=== PATIENT | male | born 1980 | race Caucasian/White ===

== ENCOUNTER → 2017-03-12 | Outpatient (CLI) | payer OTHER ==
[~2017-03-12] MED LIST: ALBU1AER9 INH; ONDA4TAB7 SL
--- NOTE | 2017-03-13 06:52 | PAP/PSG TECHNICIAN REPORT ---
[facility] Stain Maker Polysomnogram Report Study name: None Report date: 03/13/2017 Study date: 03/12/2017 Referring Physician: DR. DELLA COTE Name: NEERU OLMSTEAD Interpreting Physician: Wero Guardado M.D. Date of : 1980 Stain Maker: LONI Quezada. Sex: Male Age: 37 StudyType: PSG PAP Weight: 178 lbs Height: 37 years, Height 5' 6" BMI: 28.73 Medications: MONTELUKAST SODIUM 10 MG Patient History PATIENT HAD A SLEEP STUDY DONE IN APRIL OF 2015. HE WAS POSITIVE FOR CASH WITH AN AHI OF 19.8/HR. HE HAS TRIED A DENTAL DEVICE IN THE PAST AND FELT THAT IT DID NOT WORK. THE INSTRUCTIONS STATED TO PERFORM A CPAP TITRATION. RM 7 Parameters Monitored NPSG: E1-M2, E2-M1, Fp1-M2, Fp2-M1, F3-M2, F4-M2, F4-M1, C3-M2, C4-M2, C4-M1, O1-M2, O2-M2, O2-M1, T3-M2, T4-M1, P3-M2, P4-M1, CHIN1, CHIN2, HR, EKG, Legs, PFLOW, SNOR, FLOW, CFLOW, Tidal Volume, THOR, ABDO, SpO2, PLTH, CPRESS, ETCO2 Wave, ETCO2, pH Sleep Architecture Sleep Stages Time at Lights Off 10:59:59 PM STAGES Time (min.) TST (%) Time at Lights On 5:47:59 AM Wake 100.0 -- Total Recording Time (TRT) 408.50 min. N1 30.5 10 Total Sleep Period (TSP) 336.0 min. N2 200.5 65 Total Sleep Time (TST) 308.0min. N3 10.0 3 Awake Time 100.5 min. REM 67.0 22 Wake after Sleep Onset 30.0 min. Sleep Efficiency (SE) 75 % Sleep Onset Latency ([place]) 70.0 min. Number of Stage 1 Shifts None Awakenings 23 Stage Changes 83 Number of REM periods 3 REM 67.0 22 REM Latency 110.5 min. NREM 241.0 78 Body Position Analysis Supine Right Left Side Prone Vertical Total Sleep Time (min.) 218.4 1.3 163.8 165.10 0.0 0.0 Total Sleep Time (%) 46% 0% 53% 54 0% N/A% Total Sleep Time REM (min.) 14.0 0.0 53.0 None 0.0 0.0 Total Sleep Time NREM (min.) 128.9 1.3 110.8 None 0.0 0.0 Intermittent Wake (min.) 75.5 0.5 24.0 None 0.0 0.0 Total Sleep Period (%) 45% None None None None None Arousals Myoclonus (PLM) * Events Count Index Events Count Index Spontaneous 28 5 Events Awake (PLMW) 79 47.4 Respiratory 11 1.8 Events Asleep w/ Arousal (PLMA) 1 0.2 PLM 1 0 Events Asleep w/o Arousal (PLMS) 36 7.0 Snoring 0 0 Total Asleep 37 7.2 Total 40 8 Total 116 17 Respiratory Analysis * CA OA MA CH H RERA Total Count 2 3 0 0 33 3 38 Index 0.4 0.6 0.0 0 6.4 1 8.0 Mean Duration 15.5 21.3 0.0 0.00 19.8 13.3 19.2 Longest Duration 16.3 24.3 0.0 0.00 0.0 22.5 32.6 Respiratory Event Summary Total Supine ~Supine Right Left Prone REM NREM Apneas Count 5 1 4 0 4 N/A 0 5 Index 1.0 0 1 0.0 1.5 N/A 0 1 Hypopneas (4% Desat) Count 33 14 19 0 19 N/A 2 31 Index 6.4 5.9 7 0.0 7.0 N/A 1.8 7.7 Apneas & All Hypopneas Count 38 15 23 0 23 N/A 2 36 Index 7.4 6 8 0 8 N/A 1.8 9.0 Respiratory Events (Detention Attendant+All Hyp+RERA) Count 38 17 24 0 24 N/A 2 36 Index 8.0 7 9 0.0 8.8 N/A 1.8 9.7 Respiratory Related Arousal Count 11 17 7 0 7 N/A 0 9 Index 1.8 1 3 0 3 N/A 0 2 Snoring Analysis Supine Right Left Prone REM NREM Total Snore duration 0.6 min Snores count 2 0 18 N/A 2 18 20 Snore mean duration 1.8 Sec Snores index 1 0 7 N/A 1.8 4.5 3.9 TST with snoring (%) 0.2% Desaturation Event Summary: Minimum %SpO2 Event Count Mean/Min/Max Duration(sec.) Desaturation Index % Time In Bed > 90 52 29.2 / 4.3 / 59.1 7.8 98.9 86 - 90 0 N/A 0.0 1.0 81 - 85 0 N/A 0.0 0.2 76 - 80 0 N/A 0.0 0.0 71 - 75 0 N/A 0.0 0.0 66 - 70 0 N/A 0.0 0.0 61 - 65 0 N/A 0.0 0.0 56 - 60 0 N/A 0.0 0.0 51 - 55 0 N/A 0.0 0.0 < 50 0 N/A 0.0 0.0 Total REM NREM Awake <50% 0.0 min. 0.0 min. 0.0 min. 0.0 min. 51 - 60% 0.0 min. 0.0 min. 0.0 min. 0.0 min. 61 - 70% 0.0 min. 0.0 min. 0.0 min. 0.0 min. 71 - 80% 0.0 min. 0.0 min. 0.0 min. 0.0 min. 81 - 90% 4.6 min. 0.1 min. 3.6 min. 1.0 min. 91 - 100% 402.5 min. 66.9 min. 237.4 min. 98.2 min. Average 95 95 95 95 Minimum SpO2 82 89 83 82 Desaturation Event Index 7.6 1.8 10.0 6.6 # Desat. Events below 89% 6 N/A 6 0 Time(%) with Saturation below 89% 0.5 0.0 0.4 0.1 Time(min.) with Saturation below 89% 2.0 0.0 1.6 0.4 Time (mins) REM (mins) NREM (mins) % of TST SpO2 Below 90% 16 1 N15 0.8 SpO2 Below 88% 2 0 0 0 Heart Rate Analysis Min (bpm) Max (bpm) Average (bpm) Awake 59 127 93 NREM 54 101 74 REM 54 88 69 Overall 54 101 73 Supplemental O2 Values Minimum O2 level: None Value Start Time End Time Stain Maker Comments Mr. Olmstead slept in the right, left and supine positions. No cardiac arrhythmia noted. Leg movements noted. No bruxism noted. CPAP was initiated at +4 CMH2O and up-titrated to an optimal level of +11 CMH2O, which nearly eliminated all respiratory events and snoring. A Resmed Mirage Quattro full face size small mask was used during titration Mr. Olmstead awoke to use the restroom 0 times during the night. Mr. Olmstead stated I slept as well as I do when I am in my own bed. The final report will be interpreted and signed by a sleep physician. The completed physician report will then be placed in the patient medical record. Therapy Event: Therapy (cm H20) 4 5 6 7 8 9 10 11 Total Time at Pressure (min.) 85.1 10.1 12.0 26.0 69.6 39.3 11.4 154.3 TST at Pressure (min.) 8.1 8.1 12.0 19.5 67.6 38.8 7.9 145.8 # Periods 1 1 1 1 1 1 1 1 Sleep Onset (min.) 70.0 0.0 0.0 0.0 0.0 0.0 0.0 0.0 REM Onset (min.) N/A N/A N/A N/A 47.2 N/A N/A 7.3 Sleep Efficiency % 9 80 100 75 97 98 69 94 Wakefulness (%) 90.4 19.8 0.0 25.0 2.9 1.3 30.6 5.5 Wakefulness (min.) 77.0 2.0 0.0 6.5 2.0 0.5 3.5 8.5 NREM 1 (%) 9.6 58.0 0.0 23.0 2.9 5.1 6.5 3.7 NREM 1 (min.) 8.1 5.9 0.0 6.0 2.0 2.0 0.7 5.8 NREM 2 (%) 0.0 22.2 100.0 52.0 73.4 75.8 62.9 54.8 NREM 2 (min.) 0.0 2.2 12.0 13.5 51.1 29.8 7.2 84.5 NREM 3 (%) 0.0 0.0 0.0 0.0 4.3 17.8 0.0 0.0 NREM 3 (min.) 0.0 0.0 0.0 0.0 3.0 7.0 0.0 0.0 REM (%) 0.0 0.0 0.0 0.0 16.5 0.0 0.0 36.0 REM (min.) 0.0 0.0 0.0 0.0 11.5 0.0 0.0 55.5 # Arousals 6 5 5 6 6 5 1 6 Arousal Index 44.2 37.1 24.9 18.4 5.3 7.7 7.6 2.5 # Snore 0 1 4 2 9 1 0 3 Snore Index 0.0 7.4 19.9 6.1 8.0 1.5 0.0 1.2 AHI 14.7 37.1 59.8 18.4 2.7 9.3 15.1 0.8 AHI Supine N/A N/A N/A 37.3 4.8 12.5 15.6 0.9 AHI Non-Supine 14.7 37.1 59.8 12.2 0.0 0.0 0.0 0.7 NREM AHI 14.7 37.1 59.8 18.4 3.2 9.3 15.1 0.0 REM AHI N/A N/A N/A N/A 0.0 N/A N/A 2.2 RDI 14.7 37.1 59.8 21.5 3.5 9.3 22.7 0.8 # Obstructive 0 0 3 0 0 0 0 0 # Central Ap 1 0 0 0 0 1 0 0 # Mixed 0 0 0 0 0 0 0 0 # Hypopneas 1 5 9 6 3 5 2 2 RERAS 0 0 0 1 1 0 1 0 Total Respiratory Events 2 5 12 7 4 6 3 2 Time Below SpO2 89.00% (min.) 0.1 0.0 1.1 0.3 0.0 0.0 0.1 0.0 Mean NREM SpO2 (%) 94 94 93 94 95 95 95 95 Mean REM SpO2 (%) N/A N/A N/A N/A 95 N/A N/A 96 Mean Sleep SpO2 (%) 94 94 93 94 95 95 95 95 Min NREM SpO2 (%) 88 89 83 86 90 92 88 91 Min REM SpO2 (%) N/A N/A N/A N/A 93 N/A N/A 89 Position Supine (min.) 0.0 0.0 0.0 4.8 37.7 28.7 7.7 64.0 Position Non-supine (min.) 8.1 8.1 12.0 14.7 30.0 10.1 0.2 81.8 LM Index Sleep 44.2 37.1 10.0 6.1 6.2 4.6 15.1 4.1 LM Index NREM 44.2 37.1 10.0 6.1 5.3 4.6 15.1 5.3 LM Index REM N/A N/A N/A N/A 10.4 N/A N/A 2.2 Mean Heart Rate (bpm) 91 85 77 76 74 74 74 69 Min Heart Rate (bpm) 83 76 68 66 58 65 66 54
--- NOTE | 2017-03-13 14:26 | POLYSOMNOGRAPH REPORT ---
CLINICAL DATA: A 37-year-old male with BMI of 28.73, referred by Dr. Gandara for a CPAP study. He had a sleep study done in April of 2015, which showed moderate sleep apnea with an AHI of 19.8. He has tried a dental device in the past and it did not work. SLEEP ARCHITECTURE: Total sleep period was 336 minutes. Total sleep time was 308 minutes, divided between 241 minutes of non-REM sleep and 67 minutes of REM sleep. Sleep onset latency was 70 minutes. REM latency was 110.5 minutes. Sleep efficiency was 75%. Wake after sleep onset was 30 minutes. Sleep consisted of stage N1 10%, N2 65%, N3 3%, and REM 22%. AROUSAL DATA: 40 arousals were recorded for an index of 8 per hour. PLM DATA: 37 limb movements during sleep were noted for an index of 7.2 per hour with arousal index of 0.2 per hour. RESPIRATORY DATA: AHI was 7.4. There were 2 central and 3 obstructive apneic episodes. The longest duration of apnea was 24.3 seconds. There were 33 hypopneic episodes. The mean duration of hypopnea was 19.8 seconds. OXIMETRY DATA: Mild nocturnal hypoxemia was seen. Oxygen champ was 83% during non-REM sleep. Mean saturation was 95%. Time below 88% was 2 minutes. EKG: Heart rates ranged from 54-101 beats per minute. No arrhythmias were noted. ICER HAND'S COMMENTS: The patient slept in the right, left, and supine positions. The patient used a ResMed Mirage Quattro full face size small mask. His CPAP was titrated up to his final pressure setting of 11 cm water pressure. At 11 cm of water pressure, the patient slept for 145.8 minutes with an AHI of 0.8 with improvement in his sleep architecture. IMPRESSION: Moderate sleep apnea/hypopnea, corrected with CPAP 11 cm of water pressure, ResMed Mirage Quattro full face size small mask. RECOMMENDATIONS: The patient should be started on the above noted treatment regimen and seen back in followup within 90 days to document efficacy and compliance. [facility]
== END | disposition home or self-care (01) ==
LOC: C.NEUR 20:00
DX: G47.33 Obstructive sleep apnea (adult) (pediatric) (principal); R06.83 Snoring; J35.1 Hypertrophy of tonsils; J34.2 Deviated nasal septum; J34.3 Hypertrophy of nasal turbinates

== ENCOUNTER → 2017-04-10 | Outpatient (CLI) | payer OTHER ==
[2017-04-10 19:37] LABS: C-REACTIVE PROTEIN 2.02 mg/dl (0-0.29); URIC ACID 5.5 mg/dl (2.6-7.2)
== END | disposition home or self-care (01) ==
LOC: C.LABBFT 11:25
PROVIDERS: ATTEND Physician Assistant Medical
DX: M25.561 Pain in right knee (principal)

== ENCOUNTER → 2017-04-22 | Outpatient (CLI) | payer OTHER ==
--- NOTE | 2017-04-22 11:00 | DIAGNOSTIC IMAGING REPORT ---
MRI right knee RIGHT LOWER EXT JOINT WITHOUT CLINICAL HISTORY: M25.561 Right knee pain Right pain TECHNIQUE: MRI multi axial acquisition COMPARISON STUDY: None FINDINGS: Signal characteristics the osseous structures are unremarkable throughout. Linear focus of increased signal of the infrapatellar tendon. This suggestive suggestive of a linear intratendinous tear. This is superimposed upon a component of mild tendinopathy. Mild edematous change of the infrapatellar fat pad. Quadriceps tendon appear to be intact. Anterior and posterior cruciate ligaments are unremarkable. Medial and lateral collateral ligaments are intact. Evaluation of menisci shows medial as well as lateral meniscus to be unremarkable in overall signal character. There is no evidence for meniscal tear. IMPRESSION: 1. Linear intra- tendinous tear infrapatellar tendon.. 2. This is superimposed upon mild infrapatellar tendinopathy. 3. Remainder of the study is negative. Electronically signed by: Abdon Weiss M.D. 04/22/2017 10:59 AM Dictated Date/Time: 04/22/2017 10:55 AM
== END | disposition home or self-care (01) ==
LOC: C.MRIBC 10:00
PROVIDERS: ATTEND Internal Medicine
DX: M25.561 Pain in right knee (principal); S86.811A Strain of other muscle(s) and tendon(s) at lower leg level, right leg, initial encounter; X58.XXXA Exposure to other specified factors, initial encounter